=== PATIENT | male | born 1950 ===

== ENCOUNTER 2017-07-14 08:41 | Inpatient (IN) | payer BC, OTHER ==
[2017-07-14] MEDS ORDERED: Sodium Chloride 0.9% 1,000 ML IV STA (08:59)
--- NOTE | 2017-07-14 09:10 | ED PDOC ---
Syncope/Near Syncope/Dizziness Time Seen by Provider: 07/14/17 08:50 Chief Complaint (Provider): Syncope History Per: Patient History/Exam Limitations: no limitations Onset/Duration Of Symptoms: Hrs (prior to arrival ) Additional History Per: Family Additional Complaint(s): Freddy Vicente is a 67 year old male with a past medical history of hypertension for which he takes Metroprolol and Lisinopril, last dose taken last night, brought to the ED by family after noting a near syncopal episode prior to arrival. The patient states feeling light-headed then falling against the wall. He denies loss of consciousness, chest pain, or palpitations. He also reports taking Naprosyn prior to the episode, but has taken Naprosyn in the past with no reaction. The family notes the patient has a low heart rate, is pale and diaphoretic. PMD: TBD Past Medical History Reviewed: Historical Data, Nursing Documentation, Vital Signs Vital Signs: Last Vital Signs Temp 96.8 F L 07/14/17 08:50 Pulse 64 07/14/17 08:50 Resp 16 07/14/17 08:50 BP 89/51 L 07/14/17 08:50 Pulse Ox 98 07/14/17 08:50 - Medical History PMH: Cardia Arrhythmia, HTN - Family History Family History: States: Unknown Family Hx - Home Medications Home Medications: Ambulatory Orders Medication Instructions Recorded Naproxen 500 mg PO BID #20 tab 09/07/16 Aspirin [Adult Low Dose Aspirin EC] 81 mg PO DAILY 07/14/17 Lisinopril [Zestril] 5 mg PO DAILY 07/14/17 Metoprolol Succinate [Toprol Xl] 25 mg PO DAILY 07/14/17 Ticagrelor [Brilinta] 60 mg PO BID 07/14/17 - Allergies Allergies/Adverse Reactions: Allergies Allergy/AdvReac Type Severity Reaction Status Date / Time No Known Allergies Allergy Verified 09/07/16 11:38 Review of Systems ROS Statement: Except As Marked, All Systems Reviewed And Found Negative Constitutional: Positive for: Other (pale and diaphoretic; near syncope) Cardiovascular: Positive for: Other (low heart rate ). Negative for: Chest Pain , Palpitations Neurological: Negative for: Other (no loss of consciousness ) Physical Exam - Reviewed Nursing Documentation Reviewed: Yes Vital Signs Reviewed: Yes - Physical Exam Appears: Positive for: Well, Non-toxic, No Acute Distress Head Exam: Positive for: ATRAUMATIC, NORMAL INSPECTION, NORMOCEPHALIC Skin: Positive for: Normal Color, Warm, DRY Eye Exam: Positive for: EOMI, Normal appearance, PERRL ENT: Positive for: Normal ENT Inspection Neck: Positive for: Normal, Painless ROM Cardiovascular/Chest: Positive for: Regular Rate, Rhythm, Bradycardia (45-50 beats per minute) Respiratory: Positive for: Normal Breath Sounds. Negative for: Accessory Muscle Use, Respiratory Distress Gastrointestinal/Abdominal: Positive for: Normal Exam, Bowel Sounds, Soft. Negative for: Tenderness Back: Positive for: Normal Inspection Extremity: Positive for: Normal ROM. Negative for: Deformity Neurologic/Psych: Positive for: Alert, Oriented (x3). Negative for: Motor/ Sensory Deficits - ECG ECG Rhythm: Positive for: Sinus Bradycardia (with 1st degree AV block with inverted T waves in 1 AVL, V4, and V5) Interpretation Of ECG: Interpreted by me, González Hobson MD. Scribe Attestation: Documented by Kristi Salguero, acting as a scribe for González Hobson MD. Provider Scribe Attestation: All medical record entries made by the Scribe were at my direction and personally dictated by me. I have reviewed the chart and agree that the record accurately reflects my personal performance of the history, physical exam, medical decision making, and the department course for this patient. I have also personally directed, reviewed, and agree with the discharge instructions and disposition. O2 Sat by Pulse Oximetry: 98 (RA) Pulse Ox Interpretation: Normal Medical Decision Making Medical Decision Making: Time: 08:50 Impression: Syncope Plan: * CT Head W/O Contrst * ED EKG * CMP * Troponin I * CBC (with differential) * Chest Two Views (PA/LAT) [RAD] * NS 1,000 ml IV 1,000 mls/hr * Reevaluation Scribe Attestation: Documented by Kristi Salguero, acting as a scribe for González Hobson MD. Provider Scribe Attestation: All medical record entries made by the Scribe were at my direction and personally dictated by me. I have reviewed the chart and agree that the record accurately reflects my personal performance of the history, physical exam, medical decision making, and the department course for this patient. I have also personally directed, reviewed, and agree with the discharge instructions and disposition. Disposition - Clinical Impression Clinical Impression: Syncope - Patient ED Disposition Is Patient to be Admitted: Yes - Disposition Disposition Time: 09:31 Condition: FAIR - Pt Status Changed To: Hospital Disposition Of: Observation - POA Present On Arrival: None
[2017-07-14 09:29] LABS: BASO # 0.1 K/uL (0.0-0.2); BASO % 0.9 % (0.0-2.0); EOS # 0.4 K/uL (0.0-0.7); EOS % 4.4 % (0.0-4.0); HEMATOCRIT 50.4 % (35.0-51.0); LYMPH # 4.8 K/uL (1.0-4.3); LYMPH % 47.3 % (20.0-40.0); MEAN CELL VOLUME 85.8 fl (80.0-94.0); MEAN CORPUSCULAR HEMOGLOBIN 27.7 pg (27.0-31.0); MEAN CORPUSCULAR HGB CONC 32.3 g/dL (33.0-37.0); MEAN PLATELET VOLUME 9.3 fl (7.2-11.7); MONO # 0.6 K/uL (0.0-0.8); MONO % 6.3 % (0.0-10.0); NEUT # 4.2 K/uL (1.8-7.0); NEUT % 41.1 % (50.0-75.0); NRBC % 0.1 % (0.0-0.0); RED CELL DISTRIBUTION WIDTH 14.9 % (11.5-14.5); WHITE BLOOD COUNT 10.2 K/uL (4.8-10.8)
--- NOTE | 2017-07-14 09:33 | CT ---
PROCEDURE: CT HEAD WITHOUT CONTRAST. HISTORY: r/o bleed COMPARISON: None available. TECHNIQUE: Axial computed tomography images were obtained through the head/brain without intravenous contrast. Radiation dose: Total exam DLP = 782.79 mGy-cm. This CT exam was performed using one or more of the following dose reduction techniques: Automated exposure control, adjustment of the mA and/or kV according to patient size, and/or use of iterative reconstruction technique. FINDINGS: HEMORRHAGE: No acute parenchymal, subarachnoid or extra-axial hemorrhage. Hemorrhage. BRAIN: No evidence of large acute infarct. No obvious parenchymal nor extra-axial mass or collection seen on this noncontrast study. . Mild age-appropriate volume loss. VENTRICLES: No obstructive hydrocephalus. . CALVARIUM: Unremarkable. Calvarium exhibits dolichocephalic shape. . PARANASAL SINUSES: Unremarkable as visualized. No significant inflammatory changes. MASTOID AIR CELLS: Unremarkable as visualized. No inflammatory changes. OTHER FINDINGS: None. IMPRESSION: No acute intracranial hemorrhage. Mild age-appropriate volume loss.
[2017-07-14 09:39] LABS: ALB/GLOB RATIO 1.3 (1.0-2.1); ALKALINE PHOSPHATASE 69 U/L (38-126); ALT/SGPT 37 U/L (21-72); AST/SGOT 34 U/L (17-59); BILIRUBIN,TOTAL 0.8 mg/dl (0.2-1.3); BLOOD UREA NITROGEN 15 mg/dl (9-20); CALCIUM 9.3 mg/dL (8.4-10.2); CARBON DIOXIDE 23 mmol/L (22-30); CHLORIDE 104 mmol/L (98-107); GFR AFRICAN-AMERICAN > 60; GLUCOSE,RANDOM 134 mg/dL (75-110); POTASSIUM 3.8 MMOL/L (3.6-5.0); SODIUM 138 mmol/l (132-148); TOTAL PROTEIN 7.5 G/DL (6.3-8.2)
--- NOTE | 2017-07-14 10:48 | RAD ---
HISTORY: syncope COMPARISON: No prior. TECHNIQUE: Chest PA and lateral FINDINGS: LUNGS: Poor inspiration with low lung volumes, crowded bronchovascular markings and mild bibasilar atelectasis. PLEURA: No significant pleural effusion identified. No pneumothorax apparent. CARDIOVASCULAR: Heart size is borderline -mildly enlarged. OSSEOUS STRUCTURES: No significant abnormalities. VISUALIZED UPPER ABDOMEN: Normal. OTHER FINDINGS: None. IMPRESSION: Poor inspiration with low lung volumes, crowded bronchovascular markings and mild bibasilar atelectasis
[2017-07-14] MEDS: Sodium Chloride 0.9% 1,000 ML IV SCH ×3 (11:00→21:31)
--- NOTE | 2017-07-14 11:16 | CP.PCM.HP ---
History of Present Illness - History of Present Illness History of Present Illness: This is an 87 y/o male with hx of HTN on Lisinopril and metoprolol was admitted for near syncope prior to ER visit. He was noted to be hypotensive and bradycardic. Apparently he had taken Naprosyn the night before for his left knee pain and woke very dizzy in the morning. Noted by daughter to have some pallor and diaphoretic, and noted to have some rashes on the upper extremities and chest. Claims that he had taken Naprosyn in the past. He is also on low dose Lisinopril 5 mg and low dose Carvedilol 25 mg ER , ASA and Brillinta. Has a hx of LV dysfunction, HTN CAD and stent He was noted to have sinus bradycardia with HR upper 40.s to low 50's and first deg AV block. Present on Admission - Present on Admission Any Indicators Present on Admission: No History of DVT/PE: No History of Uncontrolled Diabetes: No Urinary Catheter: No Decubitus Ulcer Present: No Review of Systems - Musculoskeletal Musculoskeletal: Arthralgias Past Patient History - Past Social History Smoking Status: Never Smoked - CARDIAC Hx Cardia Arrhythmia: Yes Hx Hypertension: Yes - PSYCHIATRIC Hx Substance Use: No - ANESTHESIA Hx Anesthesia: No Meds Allergies/Adverse Reactions: Allergies Allergy/AdvReac Type Severity Reaction Status Date / Time naproxen [From Naprosyn] Allergy URTICARIA Verified 07/14/17 11:57 Physical Exam - Head Exam Head Exam: NORMAL INSPECTION - Eye Exam Eye Exam: Normal appearance - ENT Exam ENT Exam: Mucous Membranes Moist - Respiratory Exam Respiratory Exam: Clear to Auscultation Bilateral, NORMAL BREATHING PATTERN - Cardiovascular Exam Cardiovascular Exam: Bradycardia - GI/Abdominal Exam GI & Abdominal Exam: Normal Bowel Sounds - Neurological Exam Neurological exam: Altered, CN II-XII Intact - Skin Skin Exam: Erythema, Rash Results - Vital Signs Recent Vital Signs: Last Vital Signs Temp 96.8 F L 07/14/17 08:50 Pulse 42 L 07/14/17 09:30 Resp 18 07/14/17 09:00 BP 99/56 L 07/14/17 09:30 Pulse Ox 98 07/14/17 09:31 - Labs Result Diagrams: 07/14/17 09:00 07/15/17 04:30 Assessment & Plan (1) Near syncope Status: Acute (2) Drug-induced hypersensitivity reaction Status: Acute (3) Bradycardia Status: Acute (4) First degree atrioventricular block Status: Acute - Assessment and Plan (Free Text) Plan: Hydrate solumedrol benadryl Hold lisinopril and carvedilol for now observe
--- NOTE | 2017-07-14 13:48 | CP.PCM.CON ---
History of Present Illness - History of Present Illness History of Present Illness: I was asked to evaluate patient by Dr Redman. Patient is a 67 year old male with PMH HTN, CAD s/p previous stent of the LAD, mild LV dysfunction who presents with near syncope. The patient has complained of knee pain for the last few days. He took Naproxen, and was found to have near syncope. In ER the patient had sinus bradycardia with a first degree AV block. Review of Systems - Constitutional Constitutional: Lethargy - EENT Eyes: absent: As Per HPI, Blind Spots, Blurred Vision, Change in Vision, Decreased Night Vision, Diplopia, Discharge, Dry Eye, Exophthalmos, Floaters, Irritation, Itchy Eyes, Loss of Peripheral Vision, Pain, Photophobia, Requires Corrective Lenses, Sees Flashes, Spots in Vision, Tunnel Vision, Other Visual Disturbances, Loss of Vision, Other Ears: absent: As Per HPI, Decreased Hearing, Ear Discharge, Ear Pain, Tinnitus, Abnormal Hearing, Disequilibrium, Dizziness, Other Nose/Mouth/Throat: absent: As Per HPI, Epistaxis, Nasal Congestion, Nasal Discharge, Nasal Obstruction, Nasal Trauma, Nose Pain, Post Nasal Drip, Sinus Pain, Sinus Pressure, Bleeding Gums, Change in Voice, Dental Pain, Dry Mouth, Dysphagia, Halitosis, Hoarsness, Lip Swelling, Mouth Lesions, Mouth Pain, Odynophagia, Sore Throat, Throat Swelling, Tongue Swelling, Facial Pain, Neck Pain, Neck Mass, Other - Cardiovascular Cardiovascular: Slow Heart Rate, Syncope - Respiratory Respiratory: absent: As Per HPI, Cough, Dyspnea, Hemoptysis, Dyspnea on Exertion , Wheezing, Snoring, Stridor, Pain on Inspiration, Chest Congestion, Excessive Mucous Production, Change in Mucous Color, Pain with Coughing, Other - Gastrointestinal Gastrointestinal: absent: As Per HPI, Abdominal Pain, Belching, Bloating, Change in Bowel Habits, Change in Stool Character, Coffee Ground Emesis, Constipation, Cramping, Diarrhea, Dyspepsia, Dysphagia, Early Satiety, Excessive Flatus, Fecal Incontinence, Heartburn, Hematemesis, Hematochezia, Loose Stools, Melena, Nausea, Odynophagia, Temesmus, Vomiting, Other - Genitourinary Genitourinary: absent: As Per HPI, Change in Urinary Stream, Difficulty Urinating, Dysuria, Flank Pain, Hematuria, Pyuria, Nocturia, Urinary Incontinence, Urinary Frequency, Urinary Hesitance, Urinary Urgency, Voiding Freq/Small Amts, Freq UTI, Hx Renal/Bladder Calculi, Hx /Renal Surgery, Bladder Distension, Other - Musculoskeletal Musculoskeletal: Joint Swelling - Integumentary Integumentary: absent: As Per HPI, Acne, Alopecia, Bleeding Lesions, Change in Hair, Change in Nails, Change in Pigmentation, Changing Lesions, Dry Skin, Erythema, Furuncle, Hirsutism, Lesions, New Lesions, Non-Healing Lesions, Photosensitivity, Pruritus, Rash, Skin Pain, Skin Ulcer, Sores, Striae, Swelling , Unusual Bruising, Wounds, Jaundice, Other - Neurological Neurological: absent: As Per HPI, Abnormal Gait, Abnormal Hearing, Abnormal Movements, Abnormal Speech, Behavioral Changes, Burning Sensations, Confusion, Convulsions, Disequilibrium, Dizziness, Numbness, Focal Weakness, Frequent Falls , Headaches, Lack of Coordination, Loss of Vision, Memory Loss, Paresthesias, Radicular Pain, Restless Legs, Sensory Deficit, Syncope, Tingling, Tremor, Vertigo, Weakness, Other Visual Disturbances, Other - Psychiatric Psychiatric: absent: As Per HPI, Abnormal Sleep Pattern, Anhedonia, Anxiety, Auditory Hallucinations, Behavioral Changes, Change in Appetite, Change in Libido, Confusion, Depression, Difficulty Concentrating, Hallucinations, Homicidal Ideation, Hopelessness, Irritability, Memory Loss, Mood Swings, Panic Attacks, Paranoia, Suicidal Ideation, Visual Hallucinations, Tactile Hallucinations, Other - Endocrine Endocrine: absent: As Per HPI, Change in Body Appearance, Change in Libido, Cold Intolorance, Deepening of Voice, Excessive Sweating, Fatigue, Flushing, Heat Intolorance, Increase in Ring/Shoe/Hat Size, Palpitations, Polydipsia, Polyphagia, Polyuria, Other - Hematologic/Lymphatic Hematologic: absent: As Per HPI, Easy Bleeding, Easy Bruising, Lymphadenopathy, Other Past Patient History - Past Social History Smoking Status: Never Smoked - CARDIAC Hx Cardia Arrhythmia: Yes Hx Hypertension: Yes - PSYCHIATRIC Hx Substance Use: No - ANESTHESIA Hx Anesthesia: No Meds Allergies/Adverse Reactions: Allergies Allergy/AdvReac Type Severity Reaction Status Date / Time naproxen [From Naprosyn] Allergy URTICARIA Verified 07/14/17 11:57 - Medications Medications: Current Medications Sodium Chloride (Sodium Chloride 0.9%) 1,000 mls @ 250 mls/hr IV .Q4H CHAPARRITA Stop: 07/15/17 11:57 Last Admin: 07/14/17 11:00 Dose: 250 mls/hr Physical Exam - Constitutional Appears: Non-toxic - Head Exam Head Exam: NORMAL INSPECTION - Eye Exam Eye Exam: Normal appearance - ENT Exam ENT Exam: Mucous Membranes Moist - Neck Exam Neck exam: Positive for: Full Rom - Respiratory Exam Respiratory Exam: NORMAL BREATHING PATTERN - Cardiovascular Exam Cardiovascular Exam: Bradycardia - GI/Abdominal Exam GI & Abdominal Exam: Normal Bowel Sounds - Rectal Exam Rectal Exam: Deferred - Extremities Exam Extremities exam: Positive for: normal inspection. Negative for: pedal edema - Back Exam Back exam: NORMAL INSPECTION - Neurological Exam Neurological exam: Alert, Oriented x3 - Psychiatric Exam Psychiatric exam: Normal Affect - Skin Skin Exam: Normal Color Results - Vital Signs Recent Vital Signs: Last Vital Signs Temp 96.8 F L 07/14/17 08:50 Pulse 42 L 07/14/17 09:30 Resp 18 07/14/17 09:00 BP 99/56 L 07/14/17 09:30 Pulse Ox 98 07/14/17 09:31 - Labs Result Diagrams: 07/14/17 09:00 07/14/17 09:00 - EKG Data EKG Interpreted by: Myself EKG shows normal: Sinus rhythm Rate: Bradycardia Assessment & Plan (1) Bradycardia Assessment and Plan: will hold metorpolol. monitor on telemetry Status: Acute (2) HTN (hypertension) Assessment and Plan: will hold lisinopril Status: Acute (3) Syncope Assessment and Plan: monitor on telemetry Status: Acute
[2017-07-15] MEDS: Sodium Chloride 0.9% 1,000 ML IV SCH ×3 (02:00→08:38)
[2017-07-15 06:31] LABS: BLOOD UREA NITROGEN 13 mg/dl (9-20); CALCIUM 8.4 mg/dL (8.4-10.2); CARBON DIOXIDE 21 mmol/L (22-30); CHLORIDE 110 mmol/L (98-107); GFR AFRICAN-AMERICAN > 60; GLUCOSE,RANDOM 120 mg/dL (75-110); POTASSIUM 4.2 MMOL/L (3.6-5.0); SODIUM 138 mmol/l (132-148)
[2017-07-15 07:30] LABS: HEMATOCRIT 39.2 % (35.0-51.0); MEAN CELL VOLUME 85.8 fl (80.0-94.0); MEAN CORPUSCULAR HEMOGLOBIN 27.1 pg (27.0-31.0); MEAN CORPUSCULAR HGB CONC 31.6 g/dL (33.0-37.0); RED CELL DISTRIBUTION WIDTH 14.7 % (11.5-14.5)
--- NOTE | 2017-07-15 10:31 | CP.PCM.PN ---
Subjective - Date & Time of Evaluation Date of Evaluation: 07/15/17 Time of Evaluation: 08:30 - Subjective Subjective: Patient seen and examined with attending. Overnight patient bradycardic to 30s-40s. Telemetry monitory reviewed: regular rate, HR 90s. Continue with telemetry monitoring. He denies any symptoms of chest pain, dyspnea, dizziness presently. TSH ordered. Continue to hold metoprolol/lisinopril. Case d/w Dr. Benedict. Objective - Vital Signs/Intake and Output Vital Signs (last 24 hours): Temp Pulse Resp BP Pulse Ox 97.7 F 56 L 18 105/48 L 98 07/15/17 08:04 07/15/17 08:04 07/15/17 08:04 07/15/17 08:04 07/15/17 08:04 - Medications Medications: Current Medications Diphenhydramine HCl (Benadryl) 50 mg PO Q8 CHAPARRITA Last Admin: 07/15/17 08:38 Dose: 50 mg Sodium Chloride (Sodium Chloride 0.9%) 1,000 mls @ 250 mls/hr IV .Q4H [facility]ARRITA Stop: 07/15/17 11:57 Last Admin: 07/15/17 08:38 Dose: 250 mls/hr - Labs Labs: 07/15/17 04:30 07/15/17 04:30 - Constitutional Appears: Non-toxic, No Acute Distress - Head Exam Head Exam: NORMOCEPHALIC - Eye Exam Eye Exam: Normal appearance - ENT Exam ENT Exam: Mucous Membranes Moist - Respiratory Exam Respiratory Exam: Clear to Ausculation Bilateral, NORMAL BREATHING PATTERN. absent: Rales, Wheezes, Respiratory Distress - Cardiovascular Exam Cardiovascular Exam: REGULAR RHYTHM, +S1, +S2. absent: Tachycardia - GI/Abdominal Exam GI & Abdominal Exam: Soft, Normal Bowel Sounds. absent: Tenderness - Neurological Exam Neurological Exam: Alert, Awake, CN II-XII Intact, Oriented x3 - Psychiatric Exam Psychiatric exam: Normal Affect, Normal Mood - Skin Skin Exam: Dry, Intact, Normal Color Assessment and Plan (1) Bradycardia Assessment & Plan: 67 year old male with intermittent episodes of bradycardia, admitted for syncopal episode after experiencing adverse drug reaction to naproxen -continued telemetry monitoring -hold beta blockers, hold lisinopril -monitor vital signs -Dr. Benedict is following, recommendations appreciated. Status: Acute (2) First degree atrioventricular block Assessment & Plan: on intial ekg Status: Acute (3) Drug-induced hypersensitivity reaction Assessment & Plan: s/p solumedrol and benadryl treatment, still mildly itchy Status: Resolved (4) Abnormal TSH Assessment & Plan: low TSH : 0.2, will repeat with free t4/t3 Status: Acute (5) DVT prophylaxis Assessment & Plan: scds Status: Acute
[2017-07-16 06:02] LABS: BASO # 0.1 K/uL (0.0-0.2); BASO % 0.7 % (0.0-2.0); EOS # 0.2 K/uL (0.0-0.7); EOS % 1.9 % (0.0-4.0); HEMATOCRIT 36.5 % (35.0-51.0); LYMPH # 3.2 K/uL (1.0-4.3); LYMPH % 37.4 % (20.0-40.0); MEAN CELL VOLUME 85.6 fl (80.0-94.0); MEAN CORPUSCULAR HEMOGLOBIN 27.5 pg (27.0-31.0); MEAN CORPUSCULAR HGB CONC 32.1 g/dL (33.0-37.0); MEAN PLATELET VOLUME 9.1 fl (7.2-11.7); MONO # 0.5 K/uL (0.0-0.8); MONO % 6.4 % (0.0-10.0); NEUT # 4.5 K/uL (1.8-7.0); NEUT % 53.6 % (50.0-75.0); RED CELL DISTRIBUTION WIDTH 14.8 % (11.5-14.5); WHITE BLOOD COUNT 8.4 K/uL (4.8-10.8)
[2017-07-16 06:12] LABS: ALB/GLOB RATIO 1.2 (1.0-2.1); ALKALINE PHOSPHATASE 43 U/L (38-126); ALT/SGPT 34 U/L (21-72); AST/SGOT 31 U/L (17-59); BILIRUBIN,TOTAL 0.5 mg/dl (0.2-1.3); BLOOD UREA NITROGEN 14 mg/dl (9-20); CALCIUM 8.4 mg/dL (8.4-10.2); CARBON DIOXIDE 25 mmol/L (22-30); CHLORIDE 108 mmol/L (98-107); GFR AFRICAN-AMERICAN > 60; GLUCOSE,RANDOM 89 mg/dL (75-110); POTASSIUM 4.1 MMOL/L (3.6-5.0); SODIUM 140 mmol/l (132-148); TOTAL PROTEIN 5.6 G/DL (6.3-8.2)
[2017-07-16 06:25] LABS: T4 6.13 ug/dl (5.5-11.0)
[2017-07-16 08:26] VITALS: RESP 18
--- NOTE | 2017-07-16 08:26 | CP.PCM.PN ---
Subjective - Date & Time of Evaluation Date of Evaluation: 07/15/17 Time of Evaluation: 10:00 - Subjective Subjective: patient has itchiness due to rash, but no chest pain. Objective - Vital Signs/Intake and Output Vital Signs (last 24 hours): Temp Pulse Resp BP Pulse Ox 97.8 F 52 L 19 114/49 L 97 07/16/17 04:58 07/16/17 04:58 07/16/17 04:58 07/16/17 04:58 07/16/17 04:58 - Medications Medications: Current Medications Diphenhydramine HCl (Benadryl) 50 mg PO Q8 CHAPARRITA Last Admin: 07/16/17 02:00 Dose: 50 mg - Labs Labs: 07/16/17 05:20 07/16/17 05:20 - Constitutional Appears: Non-toxic - Head Exam Head Exam: NORMAL INSPECTION - Eye Exam Eye Exam: Normal appearance - ENT Exam ENT Exam: Mucous Membranes Moist - Neck Exam Neck Exam: Full ROM - Respiratory Exam Respiratory Exam: NORMAL BREATHING PATTERN - Cardiovascular Exam Cardiovascular Exam: Bradycardia, REGULAR RHYTHM - GI/Abdominal Exam GI & Abdominal Exam: Normal Bowel Sounds - Rectal Exam Rectal Exam: Deferred - Extremities Exam Extremities Exam: Full ROM - Back Exam Back Exam: rash noted - Neurological Exam Neurological Exam: Alert, Oriented x3 - Psychiatric Exam Psychiatric exam: Normal Mood - Skin Skin Exam: Warm Assessment and Plan (1) Bradycardia Assessment & Plan: will continue to hold betablocker. Status: Acute (2) HTN (hypertension) Assessment & Plan: well controlled off medication Status: Acute (3) Syncope Assessment & Plan: likley due to bradycardia. holding beablocker Status: Resolved
--- NOTE | 2017-07-16 11:44 | CP.PCM.DIS ---
Provider - Provider Date of Admission: 07/15/17 10:32 Attending physician: Matt Redman MD Consults: Cardiology: Dr. Benedict Time Spent in preparation of Discharge (in minutes): 35 Diagnosis - Discharge Diagnosis (1) Bradycardia Status: Acute (2) First degree atrioventricular block Status: Acute (3) Drug-induced hypersensitivity reaction Status: Resolved (4) Abnormal TSH Status: Resolved Hospital Course - Lab Results Lab Results: Most Recent Lab Values WBC 8.4 K/uL (4.8-10.8) 07/16/17 05:20 RBC 4.26 Mil/uL (4.40-5.90) L 07/16/17 05:20 Hgb 11.7 g/dL (12.0-18.0) L 07/16/17 05:20 Hct 36.5 % (35.0-51.0) 07/16/17 05:20 MCV 85.6 fl (80.0-94.0) 07/16/17 05:20 MCH 27.5 pg (27.0-31.0) 07/16/17 05:20 MCHC 32.1 g/dL (33.0-37.0) L 07/16/17 05:20 RDW 14.8 % (11.5-14.5) H 07/16/17 05:20 Plt Count 148 K/uL (130-400) 07/16/17 05:20 MPV 9.1 fl (7.2-11.7) 07/16/17 05:20 Neut % (Auto) 53.6 % (50.0-75.0) 07/16/17 05:20 Lymph % (Auto) 37.4 % (20.0-40.0) 07/16/17 05:20 [place] % (Auto) 6.4 % (0.0-10.0) 07/16/17 05:20 Eos % (Auto) 1.9 % (0.0-4.0) 07/16/17 05:20 Baso % (Auto) 0.7 % (0.0-2.0) 07/16/17 05:20 Neut # 4.5 K/uL (1.8-7.0) 07/16/17 05:20 Lymph # 3.2 K/uL (1.0-4.3) 07/16/17 05:20 [place] # 0.5 K/uL (0.0-0.8) 07/16/17 05:20 Eos # 0.2 K/uL (0.0-0.7) 07/16/17 05:20 Baso # 0.1 K/uL (0.0-0.2) 07/16/17 05:20 Sodium 140 mmol/l (132-148) 07/16/17 05:20 Potassium 4.1 MMOL/L (3.6-5.0) 07/16/17 05:20 Chloride 108 mmol/L (98-107) H 07/16/17 05:20 Carbon Dioxide 25 mmol/L (22-30) 07/16/17 05:20 Anion Gap 11 (10-20) 07/16/17 05:20 BUN 14 mg/dl (9-20) 07/16/17 05:20 Creatinine 0.9 mg/dL (0.8-1.5) 07/16/17 05:20 Est GFR ( Amer) > 60 07/16/17 05:20 Est GFR (Non-Af Amer) > 60 07/16/17 05:20 POC Glucose (mg/dL) 122 mg/dL (65-110) H 07/14/17 08:49 Random Glucose 89 mg/dL (75-110) 07/16/17 05:20 Calcium 8.4 mg/dL (8.4-10.2) 07/16/17 05:20 Total Bilirubin 0.5 mg/dl (0.2-1.3) 07/16/17 05:20 AST 31 U/L (17-59) 07/16/17 05:20 ALT 34 U/L (21-72) 07/16/17 05:20 Alkaline Phosphatase 43 U/L (38-126) 07/16/17 05:20 Troponin I 0.0220 ng/mL (0.00-0.120) 07/14/17 09:00 Total Protein 5.6 G/DL (6.3-8.2) L 07/16/17 05:20 Albumin 3.0 g/dL (3.5-5.0) L D 07/16/17 05:20 Globulin 2.6 gm/dL (2.2-3.9) 07/16/17 05:20 Albumin/Globulin Ratio 1.2 (1.0-2.1) 07/16/17 05:20 Free T4 1.06 ng/dL (0.78-2.19) 07/16/17 05:20 Thyroxine (T4) 6.13 ug/dl (5.5-11.0) 07/16/17 05:20 Total T3 1.12 nmol/L (1.49-2.60) L 07/16/17 05:20 TSH 3rd Generation 3.50 mIU/ML (0.46-4.68) 07/16/17 05:20 - Hospital Course Hospital Course: Patient seen and examined with attending. 67 year old male admitted for allergic reaction to naproxen with urticaria, hypotension and near syncope. Patient condition improved, however found to have first degree AV block and bradycardia. Seen and evaluated by Dr. Benedict. 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 Continue with Brilinta. - Date & Time of H&P Date of H&P: 07/14/17 Time of H&P: 11:15 Discharge Exam - Head Exam Head Exam: NORMAL INSPECTION - Eye Exam Eye Exam: EOMI, Normal appearance, PERRL - Respiratory Exam Respiratory Exam: Clear to PA & Lateral, NORMAL BREATHING PATTERN. absent: Rales, Rhonchi, Wheezes, Respiratory Distress, Stridor - Cardiovascular Exam Cardiovascular Exam: Bradycardia (HR 40-50s on cardiac monitor technician), REGULAR RHYTHM, +S1, +S2 - GI/Abdominal Exam GI & Abdominal Exam: Normal Bowel Sounds, Soft, Unremarkable. absent: Distended , Guarding, Rebound, Tenderness - Extremities Exam Extremities exam: normal inspection - Neurological Exam Neurological exam: Alert, CN II-XII Intact, Oriented x3 - Psychiatric Exam Psychiatric exam: Normal Affect, Normal Mood - Skin Skin Exam: Dry, Intact, Normal Color Additional comments: no urticaria or skin lesions Discharge Plan - Follow Up Plan Condition: FAIR Disposition: HOME/ ROUTINE Additional Instructions: Avoid NSAIDS due to reaction to naproxen. Continue with Brilinta until follow up with Dr. Benedict. Referrals: Matt Redman MD [Staff Provider] - Glendy Benedict MD [Staff Provider] -
[2017-07-16 12:12] VITALS: BP 137/57; PULSE 57; TEMP 98; O2SAT 99
--- NOTE | 2017-07-17 11:51 | PQF GENQUE ---
Dr. Redman, Etiology of Syncope if known? OR: Unable to determine OR: Other explanation of clinical findings Cardiology consult: Assessment: (1) Bradycardia : will hold metorpolol. monitor on telemetry Status: Acute (2) HTN (hypertension) :will hold lisinopril Status: Acute (3) Syncope: on telemetry Status: Acute D/C Summary: admitted for allergic reaction to naproxen with urticaria, hypotension and near syncope. Patient condition improved, however found to have first degree AV block and bradycardia Discharge Diagnosis : (1) Bradycardia Status: Acute (2) First degree atrioventricular block Status: Acute (3) Drug-induced hypersensitivity reaction Status: Resolved (4) Abnormal TSH Status: Resolved This form is a permanent part of the medical record Clarification of your documentation is requested to better reflect the severity of illness and intensity of treatment of your patient. Indicators present [] Specify: [] [] Specify: [] [] Specify: [] [] Specify: [] Location in the medical record that reflects the above clinical findings: [] Treatment Provided: [] PHYSICIAN'S RESPONSE Based on your medical judgment of the clinical indicators outlined above please clarify the following: [] Practitioner response [] If unable to determine, please check the box, sign and date. Present On Admission (POA) Indicator: [] Present at the time of admission [] Not present at the time of admission [] Clinically Undetermined In responding to this query, please exercise your independent professional judgment. The fact that a question is asked does not imply that any particular answer is desired or expected. Thank you for your clarification on this documentation. If you have any questions please call. * Thank you, Latonia Woodard RN BSN ext. #[phone] MTDD
--- NOTE | 2017-07-18 11:41 | CARD ---
APPROVED REPORT EKG Measurement Heart [id number] <Conclusion> Sinus rhythm with 1st degree AV block Anterolateral infarct, age undetermined Abnormal ECG
--- NOTE | 2017-07-18 18:42 | CARD ---
APPROVED REPORT EKG Measurement Heart [id number] <Conclusion> Sinus bradycardia with 1st degree AV block Low voltage QRS Anterolateral infarct, age undetermined Abnormal ECG
== END 2017-07-16 14:14 | disposition home or self-care (01) | DRG 310 ==
LOC: H.ER 08:41 → H.ERHOLD 09:31 → H.TEL 13:36 → OBSVTOIN 07-15 10:32
PROVIDERS: ADMIT Family Medicine; ATTEND Family Medicine
DX: R00.1 Bradycardia, unspecified (principal); I10 Essential (primary) hypertension; T39.315A Adverse effect of propionic acid derivatives, initial encounter; I25.10 Atherosclerotic heart disease of native coronary artery without angina pectoris; Z95.5 Presence of coronary angioplasty implant and graft; I44.0 Atrioventricular block, first degree; R94.6 Abnormal results of thyroid function studies; R21 Rash and other nonspecific skin eruption; L50.0 Allergic urticaria